=== PATIENT | male | born 1980 | race Caucasian/White ===

== ENCOUNTER 2016-07-20 02:24 | Emergency (ER) | payer SELFPAY ==
[~2016-07-20] VITALS: Ht 170.2 cm; Wt 81.6 kg
[2016-07-20 02:41] VITALS: BP 136/77
--- NOTE | 2016-07-20 02:50 | PHYS DOC ---
Past Medical History Past Medical History: No Pertinent History Past Surgical History: No Surgical History Alcohol Use: None Drug Use: Marijuana Adult General Chief Complaint Chief Complaint: NAUSEA/VOMITING/DIARRHA HPI HPI Patient is a 36 year old male who presents with burning epigastric abdominal pain for the past day, worse after taking a doxycycline pill this evening for a dental infection. This was the first dose he took of his 's leftover medication. He notes developing nbnb emesis x few. Now his symptoms are resolving other than mild epigastric burning. States symptoms started like his usual intermittent acid reflux. He denies f/c, diarrhea, bloody or dark stools , dysuria, back pain. Notes he is to see a dentist tomorrow for right lower dental pain. Review of Systems Review of Systems Constitutional: Denies fever or chills [] Eyes: Denies change in visual acuity, redness, or eye pain [] HENT: Denies nasal congestion or sore throat [] Respiratory: Denies cough or shortness of breath [] Cardiovascular: No additional information not addressed in HPI [] GI: Denies bloody stools or diarrhea [] : Denies dysuria or hematuria [] Musculoskeletal: Denies back pain or joint pain [] Integument: Denies rash or skin lesions [] Neurologic: Denies headache, focal weakness or sensory changes [] Endocrine: Denies polyuria or polydipsia [] Current Medications Current Medications Current Medications Medications (Trade) Dose Ordered Sig/Ahsan Start Time Stop Time Status Last Admin Dose Admin Multi-Ingredient Mouthwash/Gargle (Gi Cocktail Single Dose) 15 ml 1X ONCE 07/20/16 03:00 07/20/16 03:01 Allergies Allergies Allergies Coded Allergies Type Severity Reaction Last Updated Verified No Known Drug Allergies 07/20/16 No Physical Exam Physical Exam Constitutional: Well developed, well nourished, no acute distress, non-toxic appearance. [] HENT: Normocephalic, atraumatic, bilateral external ears normal, oropharynx moist, no oral exudates, nose normal. Has dental cavity to right lower anterior molar. No gumline tenderness, swelling or discoloration; No stridor, change of voice, tongue swelling, trismus, or drooling; Uvula is midline and floor is nontender[] Eyes: PERRLA, EOMI. [] Neck: Normal range of motion, supple. [] Cardiovascular:Heart rate regular rhythm [] Lungs & Thorax: Bilateral breath sounds clear to auscultation [] Abdomen: Bowel sounds normal, soft, no tenderness. [] Skin: Warm, dry, no erythema, no rash. [] Back: Normal ROM. [] Extremities: ROM intact, no edema. [] Neurologic: Alert and oriented X 3, normal motor function, normal sensory function, no focal deficits noted. [] Psychologic: Affect normal, judgement normal, mood normal. [] Current Patient Data Vital Signs Vital Signs Date Time Temp Pulse Resp B/P Pulse Ox O2 Delivery O2 Flow Rate FiO2 07/20/16 02:41 98.5 72 16 97 Room Air 98.5 07/20/16 02:38 136/77 Course & Med Decision Making Course & Med Decision Making Symptoms improving. Discussed symptomatic care; such as pepcid for acid reflux symptoms. Discussed to stop taking doxy. Return precautions given. He understands and agrees with plan. Dragon Disclaimer Dragon Disclaimer This electronic medical record was generated, in whole or in part, using a voice recognition dictation system. Departure Departure Impression: Primary Impression: Nausea and vomiting Additional Impression: Epigastric abdominal pain Disposition: 01 HOME, SELF-CARE Condition: STABLE Patient Instructions: Nausea and Vomiting, [id number] Additional Instructions: Follow-up with your primary care doctor. Return for any concerns. Problem Qualifiers Narendra ZIMMERMAN MD Jul 20, 2016 02:50
[2016-07-20] MEDS ORDERED: LIDO:MAALOX:DONNATAL 1:1:1 15 ML SINGLE DOSE SWSW ONE (03:00)
== END 2016-07-20 02:47 | disposition home or self-care (01) ==
LOC: ER 02:24
DX: R10.13 Epigastric pain (principal); R11.2 Nausea with vomiting, unspecified; F12.10 Cannabis abuse, uncomplicated; K21.9 Gastro-esophageal reflux disease without esophagitis
CPT/HCPCS: 99282

== ENCOUNTER 2017-09-06 17:30 | Emergency (ER) | payer SELFPAY | END 2017-09-06 17:59 | disposition home or self-care (01) | LOC: ER 17:30 | DX: L03.211 Cellulitis of face (principal); L73.1 Pseudofolliculitis barbae | CPT/HCPCS: 99283 ==